=== PATIENT | male | born 1995 | race Two or more races ===

== ENCOUNTER 2019-09-09 13:02 | Emergency (ER) | payer OTHER ==
[~2019-09-09] VITALS: Ht 170.2 cm; Wt 110.0 kg
[2019-09-09] MEDS ORDERED: IBUP-1986 PO (14:55)
[2019-09-09 15:08] VITALS: BP 132/66
== END 2019-09-09 15:09 | disposition home or self-care (01) ==
LOC: ER 13:03
DX: M76.62 Achilles tendinitis, left leg (principal); M72.2 Plantar fascial fibromatosis; F14.90 Cocaine use, unspecified, uncomplicated; Z86.718 Personal history of other venous thrombosis and embolism
CPT/HCPCS: 93971; 99284

== ENCOUNTER 2021-10-05 11:21 | Day surgery (SDC) | payer MEDICAID ==
[~2021-10-05] VITALS: Ht 170.2 cm; Wt 105.9 kg
[~2021-10-05 11:21] MED LIST: IBUP-1986 PO
[2021-10-05] MEDS ORDERED: SEVE800T28 PO (11:45)
[2021-10-05] MEDS ORDERED: HYDR-3964 PO (11:45)
[2021-10-05] MEDS ORDERED: ERGO500054 PO (11:45)
[2021-10-05] MEDS ORDERED: normal saline 1000ml 1,000 ML IV SCH ×4 (11:55→13:50)
[2021-10-05 12:00] VITALS: BP 123/61
[2021-10-05] MEDS ORDERED: fentaNYL/PF 50MCG/1 ML 2ML syringe ONE ×2 (13:21→14:08)
[2021-10-05] MEDS ORDERED: midazolam 1 mg/ML 2ml injection ONE ×2 (13:21→14:08)
[2021-10-05] MEDS ORDERED: heparin 1,000unit/ml 10ml vial 10 ML ONE (13:21)
[2021-10-05] MEDS ORDERED: LIDOcaine 1%/PF 5ML 10 MG/ML VIAL ONE ×3 (13:21→14:12)
[2021-10-05 14:38] VITALS: BP 114/63
[2021-10-05 14:53] VITALS: BP 111/76
[2021-10-05 15:09] VITALS: BP 132/74
[2021-10-05 15:16] VITALS: BP 123/69
== END 2021-10-05 16:24 | disposition home or self-care (01) ==
LOC: SSTAY O 11:21
PROVIDERS: ATTEND Radiology Vascular & Interventional Radiology
DX: T82.858A Stenosis of other vascular prosthetic devices, implants and grafts, initial encounter (principal); I12.0 Hypertensive chronic kidney disease with stage 5 chronic kidney disease or end stage renal disease; N18.6 End stage renal disease; F14.90 Cocaine use, unspecified, uncomplicated; Z79.899 Other long term (current) drug therapy; Z72.89 Other problems related to lifestyle; Y83.2 Surgical operation with anastomosis, bypass or graft as the cause of abnormal reaction of the patient, or of later complication, without mention of misadventure at the time of the procedure; Y92.89 Other specified places as the place of occurrence of the external cause
CPT/HCPCS: 36558; 76937; 77001; 99152; 99153; C1750; C1769; C1894; J1644; J2250; J3010; A9270